=== PATIENT | female | born 1965 | race Caucasian/White ===

== ENCOUNTER 2018-10-30 14:59 | Outpatient (CLI) | payer OTHER ==
[~2018-10-30 14:59] MED LIST: FERR325T18 PO; SULF1TAB24 PO
[2018-10-30] MEDS ORDERED: OMNIPAQUE 350 MG/ML, 100ML BOTTLE ONE (16:24)
== END 2018-10-30 23:59 | disposition home or self-care (01) ==
LOC: RAD 14:59
PROVIDERS: ATTEND Family Medicine
DX: N13.2 Hydronephrosis with renal and ureteral calculous obstruction (principal)
CPT/HCPCS: 74178; Q9967